=== PATIENT | male | born 1930 | race Caucasian/White ===

== ENCOUNTER 2017-09-30 11:08 | Inpatient (IN) | payer OTHER ==
[~2017-09-30] VITALS: Ht 172.7 cm; Wt 68.0 kg
--- NOTE | ~2017-09-30 | EKG ---
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 : 1930 Requested By: Anupama Fiore Order Number: [id number] MD: Irwin Alexander Measurements Intervals [place] Rate: 76 P: 85 CO: 156 QRS: -61 QRSD: 105 T: 74 QT: 499 QTc: 562 Interpretive Statements Sinus rhythm Atrial premature complexes Low voltage, extremity leads Early R-wave progression Prolonged QT interval Compared to ECG 09/30/2017 11:29:01 Atrial premature complex(es) now present Sinus bradycardia no longer present Electronically Signed On 10-04-2017 8:44:07 CDT by Irwin Alexander [email or web address] <ELECTRONICALLY SIGNED> By: Irwin Alexander MD, [facility] 10/04/17 0844 0325 0325 Irwin Alexander MD, [facility] /EPI
--- NOTE | ~2017-09-30 | EKG ---
[place] [address] [facility] [place] [address] ELECTROCARDIOGRAM REPORT Name: SHITAL BOYER Room #: 461-P [facility] IN ..#: [id number] Admission: 09/30/17 Attend Phys: Yaz Benjamin Discharge: Date of : [birth year] Report #: [id number] THIS REPORT FOR: //name// [facility] ED Test Date: 2017-09-30 Test Time: 11:29:01 Pat Name: SHITAL BOYER Department: Room: Gender: M Clinical Resource Manager: Katia HERNÁNDEZ : 1930 Requested By: Nishi Arevalo Order Number: [id number] MD: Kevin Miner Measurements Intervals [place] Rate: 48 P: -16 PA: 142 QRS: -23 QRSD: 94 T: 47 QT: 488 QTc: 436 Interpretive Statements Sinus bradycardia Borderline left axis deviation Borderline low voltage, extremity leads No previous ECG available for comparison Electronically Signed On 10-01-2017 7:48:49 CDT by Kevin Miner [email or web address] <ELECTRONICALLY SIGNED> By: Kevin Miner MD 10/01/17 0748 1129 1129 Kevin Miner MD /HELIO
--- NOTE | ~2017-09-30 | HC ---
[facility] [place] [address] CONSULTATION Name: SHITAL BOYER Room #: 461-P ADM IN M.R.#: [id number] Admission: 09/30/17 Attend Phys: Yaz Benjamin Discharge: Date of : [birth year] Report #: [id number] THIS REPORT FOR: //name// CC: Yaz Land DATE OF SERVICE: 10/02/2017 HISTORY OF PRESENT ILLNESS: This is an 87-year-old male patient who was evaluated by me for altered mental status. This patient is very hard of hearing. So, history was very difficult to come from him. I reviewed all his records and got some of the history from the records. Subsequently, I called the patient's son and talked to him, he provided some history. He indicated the patient is losing short term memory. This is going on for some time. He intermittently becomes confused, but then at night he came back from him and the patient was very confused. He came to Emergency Room because his PCP told him to come to Emergency Room. Since then, it looks like it has been associated with some bradycardia. REVIEW OF SYSTEMS: Indicate the patient's memory was poor, but he was able to handle many of the things by himself when the son was gone. He is not having any significant speech difficulty. I carried out 14-point review of system with him as well as from the record. He is very hard of hearing. He is not complaining of any new eye, cardiac, respiratory, GI, , musculoskeletal, constitutional, dermatological, hematological, psychiatric, throat, allergic symptom associated with present symptomatology. It is very difficult to be certain because he is very confused. PAST MEDICAL HISTORY: Negative for any stroke. FAMILY HISTORY: Negative for early age stroke. SOCIAL HISTORY: He lives with his son and he is at home by himself. PHYSICAL EXAMINATION: Indicate he is alert. He is responsive. He is very hard of hearing. He did tell me what month or what day it is. His speech looks intact. His cranial nerve examination 2-12 was carried out. His exam was very difficult because of him being hard of hearing. I did not see any definite abnormality. He refused to cooperate with the motor, sensory, reflex and tone, although that was attempted. He did not understand the instruction for cerebellar sign. He will not cooperate for any fundus examination. Presently, he is well 1:1. He is moderately well-built individual who does not have any dysmorphic features of eyes, ears and face. His hearing and vision looks adequate. His pulses are somewhat difficult to feel, but he has no edema, cyanosis or jaundice. His cardiac examination is unremarkable. He does not have any respiratory difficulty or rhonchi. Blood pressure is 145/79, [facility] [address] [place] [address] CONSULTATION Name: SHITAL BOYER Room #: 461-P [facility] IN M.R.#: [id number] Admission: 09/30/17 Attend Phys: Yaz Benjamin Discharge: Date of : [birth year] Report #: [id number] respirations 16, pulse is 60, temperature is 97.8. LABORATORY DATA: White count is 8.9. Sodium is 139 and his TSH and vitamin B12 is normal. He did have a CT scan of the head, which showed chronic changes, but no acute changes. IMPRESSION: I suspect this patient has underlying dementia. Something decompensated his dementia. He needs workup in that regard. We will get an EEG done and we will get an MRI done. I do not think any acute intervention can be done. I will also suggest neuropsychological testing to see if he needs any different living arrangement. RECOMMENDATIONS: 1. MRI of the brain. 2. EEG. 3. TSH, vitamin B12, which is already done and is normal. 4. Neuro psychological testing to formally assess his capabilities to do things. Thank you very much for this referral. <ELECTRONICALLY SIGNED> By: Simon Mcallister MD 10/03/172019 1246 Simon Mcallister MD /nt
--- NOTE | ~2017-09-30 | 2DMMODE ---
[facility] [address] [place] [address] 2 D/M-MODE ECHOCARDIOGRAM Name: SHITAL BOYER Room #: 461-P ADM IN M.R.#: [id number] Admission: 09/30/17 Attend Phys: aYz Raymond Discharge: Date of : [birth year] Date of Service: 10/04/17 0953 Report #: [id number] THIS REPORT FOR: //name// APPROVED REPORT Study performed: 10/04/2017 08:51:31 EXAM: Comprehensive 2D, Doppler, and color-flow Echocardiogram Patient Location: Bedside Room #: 461 Status: routine BSA: 1.81 HR: 92 bpm BP: 154/78 mmHg Other Information Study Quality: Technically Difficult/Technically Limited Technically limited study due to inability to position patient, uncooperative patient, lung disease. Indications Bradycardia Hypertension/HDD 2D Dimensions RVDd: 28.84 mm LVEF(%): 64.78 (>50%) IVSd: 11.07 (7-11mm) LVOT Diam: 19.75 (18-24mm) LVDd: 40.70 mm PWd: 10.89 (7-11mm) LVDs: 26.46 (25-40mm) Aortic Root: 31.91 mm IVC: 15.00 mm Tijerina's LVEF: 64.78 % Volumes Left Atrial Volume (Systole) Single Plane 4CH: 15.09 mL Aortic Valve AoV Peak Alvaro.: 1.03 m/s AO Peak Gr.: 4.20 mmHg LVOT Max P.11 mmHg LVOT Max V: 0.73 m/s DANIA Vmax: 2.17 cm2 Mitral Valve [facility] [address] [place] [address] 2 D/M-MODE ECHOCARDIOGRAM Name: SHITAL BOYER Kevin Room #: 461-P [facility] IN [facility].#: [id number] Admission: 09/30/17 Attend Phys: Yaz Raymond Discharge: Date of : [birth year] Date of Service: 10/04/17 0953 Report #: [id number] E/A Ratio: 0.7 MV Decel. Time: 202.85 ms MV E Max Alvaro.: 0.55 m/s MV A Alvaro.: 0.75 m/s MV PHT: 58.83 ms IVRT: 117.65 ms Pulmonary Valve PV Peak Alvaro.: 0.77 m/s PV Peak Gr.: 2.36 mmHg Tricuspid Valve RAP Estimate: 5.00 mmHg Left Ventricle The left ventricle is normal size. There is normal left ventricular wall thickness. The left ventricular systolic function is normal. The left ventricular ejection fraction is within the normal range. LVEF is 55-60%. Transmitral Doppler flow pattern suggests mild impaired LV relaxation. Right Ventricle The right ventricle is normal size. The right ventricular systolic function is normal. Atria The left atrium size is normal. The right atrium size is normal. Aortic Valve Aortic valve is grossly normal in structure. No aortic regurgitation is present. There is no aortic valvular stenosis. Mitral Valve The mitral valve is normal in structure. There is no mitral valve regurgitation noted. No evidence of mitral valve stenosis. Tricuspid Valve The tricuspid valve is normal in structure. Trace tricuspid regurgitation. Unable to assess PA pressure. Pulmonic Valve Pulmonic valve is not well visualized. Great Vessels The aortic root is normal in size. IVC is normal in size and collapses >50% with inspiration. [facility] [address] [place] [address] 2 D/M-MODE ECHOCARDIOGRAM Name: SHITAL BOYER Kevin Room #: 461-P ADM IN M.R.#: [id number] Admission: 09/30/17 Attend Phys: Yaz Raymond Discharge: Date of : [birth year] Date of Service: 10/04/17 0953 Report #: [id number] Pericardium There is hemodynamically insignificant pericardial effusion. <Conclusion> The left ventricle is normal size. LVEF is 55-60%. Aortic valve is grossly normal in structure. The mitral valve is normal in structure. The tricuspid valve is normal in structure. Trace tricuspid regurgitation. Pulmonic valve is not well visualized. There is hemodynamically insignificant pericardial effusion. <ELECTRONICALLY SIGNED> By: Alfredo Raygoza MD 10/04/1753 2 2 Alfredo Raygoza MD /INF
[2017-09-30 11:17] VITALS: BP 128/56
[2017-09-30 11:32] LABS: HEMATOCRIT 45.1 % (42.0-52.0); HEMOGLOBIN 15.3 gm/dL (14.0-18.0); MCH 33.2 pg (26.0-34.0); MCHC 34.1 g/dL (28.0-37.0); MCV 97.5 fL (80.0-100.0); PLATELET COUNT 156 thou/uL (150-400); RBC 4.62 mil/uL (4.50-6.00); RDW 12.7 % (10.5-14.5); WBC 8.2 thou/uL (4.0-11.0)
[2017-09-30] MEDS ORDERED: HYDROCHLOROTHIA25 M2 PO (11:38)
[2017-09-30] MEDS ORDERED: SIMVASTATIN40 MG PO (11:39)
[2017-09-30] MEDS ORDERED: OMEPRAZOLE40 MG PO (11:39)
[2017-09-30] MEDS ORDERED: LISINOPRIL10 MG PO (11:39)
[2017-09-30 11:40] LABS: CALCIUM 8.5 mg/dL (8.5-10.1); CREATININE 1.6 mg/dL (0.7-1.3); POTASSIUM 4.3 mmol/L (3.5-5.1)
[2017-09-30 11:45] LABS: ALBUMIN 3.9 g/dL (3.4-5.0); DIRECT BILIRUBIN 0.3 mg/dL (<0.1-0.3); TOTAL BILIRUBIN 1.6 mg/dL (<0.1-1.0); TOTAL PROTEIN 6.6 g/dL (6.4-8.2)
[2017-09-30 12:17] LABS: ABSOLUTE NEUTROPHILS 3.2 thou/uL (1.4-8.2); PLATELET ESTIMATE NORMAL
[2017-09-30 12:41] LABS: URINE BLOOD NEGATIVE (Negative); URINE CLARITY CLEAR; URINE COLOR YELLOW; URINE GLUCOSE-RANDOM* NEGATIVE (Negative); URINE KETONES NEGATIVE (Negative); URINE LEUKOCYTES NEGATIVE (Negative); URINE NITRITE NEGATIVE (Negative); URINE PROTEIN (DIPSTICK) TRACE (Negative); URINE SPECIFIC GRAVITY >= 1.030 (1.005-1.035)
[2017-09-30 12:44] LABS: ICTOTEST (BILI CONFIRMATORY) Negative (Negative); URINE BILIRUBIN NEGATIVE (Negative)
[2017-09-30 13:56] VITALS: BP 118/67
[2017-09-30 14:25] LABS: TSH 1.11 uIU/mL (0.358-3.740)
[2017-09-30 14:55] LABS: FOLIC ACID 37.6 ng/mL (8.6-58.9)
[2017-09-30 14:56] VITALS: BP 143/70
[2017-09-30 14:58] LABS: AMP/METHAMP Negative (Negative); BARBITURATES Negative (Negative); BENZODIAZEPINES Negative (Negative); COCAINE Negative (Negative); METHADONE Negative (Negative); OPIATES Negative (Negative); PCP Negative (Negative)
[2017-09-30 15:46] VITALS: BP 141/68
[2017-09-30 20:06] VITALS: BP 114/55
[2017-10-01 04:39] VITALS: BP 127/60
[2017-10-01 05:25] LABS: ABSOLUTE NEUTROPHILS 3.6 thou/uL (1.4-8.2); BASOPHILS 0.8 % (0.0-2.0); EOSINOPHILS 5.1 % (0.0-3.0); HEMATOCRIT 41.6 % (42.0-52.0); LYMPHOCYTES 42.9 % (24.0-44.0); MCH 32.8 pg (26.0-34.0); MCHC 33.7 g/dL (28.0-37.0); MCV 97.6 fL (80.0-100.0); MONOCYTES 10.8 % (1.0-8.0); PLATELET COUNT 137 thou/uL (150-400); POLYS 40.4 % (36.0-66.0); RBC 4.26 mil/uL (4.50-6.00); RDW 12.7 % (10.5-14.5); WBC 8.9 thou/uL (4.0-11.0)
[2017-10-01 05:42] LABS: CHOLESTEROL 161 mg/dL (<200); HDL CHOLESTEROL 32 mg/dL (>40); LDL CHOLESTEROL 108 mg/dL (<100); TRIGLYCERIDE 107 mg/dL (<150); VLDL 21 mg/dL (<40)
[2017-10-01 05:43] LABS: SERUM ASSESSMENT Clear
[2017-10-01 05:44] LABS: CALCIUM 8.3 mg/dL (8.5-10.1); CREATININE 1.4 mg/dL (0.7-1.3); POTASSIUM 4.4 mmol/L (3.5-5.1)
[2017-10-01 08:00] VITALS: BP 138/72
[2017-10-01 15:10] VITALS: BP 125/74
[2017-10-01 18:59] VITALS: BP 146/77
[2017-10-02 07:34] VITALS: BP 145/79
[2017-10-02 15:38] VITALS: BP 137/56
[2017-10-02 19:37] VITALS: BP 161/79
[2017-10-03 06:19] VITALS: BP 136/95
[2017-10-03 11:27] LABS: ALBUMIN 3.5 g/dL (3.4-5.0); CALCIUM 8.7 mg/dL (8.5-10.1); CREATININE 1.2 mg/dL (0.7-1.3); POTASSIUM 4.3 mmol/L (3.5-5.1); TOTAL BILIRUBIN 1.9 mg/dL (<0.1-1.0); TOTAL PROTEIN 6.1 g/dL (6.4-8.2)
[2017-10-03 11:30] VITALS: BP 174/93
[2017-10-03 17:08] VITALS: BP 174/93
[2017-10-03 19:16] VITALS: BP 128/84
[2017-10-04 02:11] VITALS: BP 139/88
[2017-10-04 04:00] VITALS: BP 154/78
[2017-10-04 10:51] VITALS: BP 112/62
[2017-10-04 16:14] VITALS: BP 157/74
[2017-10-04 19:41] VITALS: BP 154/79
[2017-10-05 03:58] VITALS: BP 138/80
[2017-10-05 09:09] VITALS: BP 146/73
[2017-10-05] MEDS ORDERED: TRAZODONE HCL50 MG PO (10:15)
[2017-10-05] MEDS ORDERED: RISPERIDONE 00.25 M1 PO (10:16)
[2017-10-05 15:32] VITALS: BP 141/72
[2017-10-05 20:15] VITALS: BP 154/72
[2017-10-06 04:51] VITALS: BP 134/75
[2017-10-06 08:25] VITALS: BP 145/82
== END 2017-10-06 16:00 | DRG 70 ==
LOC: ER 11:08 → EROBS 12:57 → 4W 12:57
PROVIDERS: Emergency Medicine; Hospitalist; Nurse Practitioner
DX: G93.40 Encephalopathy, unspecified (principal); N17.0 Acute kidney failure with tubular necrosis; R00.1 Bradycardia, unspecified; I10 Essential (primary) hypertension; E78.5 Hyperlipidemia, unspecified; K21.9 Gastro-esophageal reflux disease without esophagitis; E86.0 Dehydration; F03.90 Unspecified dementia, unspecified severity, without behavioral disturbance, psychotic disturbance, mood disturbance, and anxiety; Z88.1 Allergy status to other antibiotic agents; Z88.0 Allergy status to penicillin
CPT/HCPCS: 10045